=== PATIENT | male | born 1985 | race Caucasian/White ===

== ENCOUNTER 2017-05-08 12:35 | Emergency (ER) | payer SELFPAY ==
[~2017-05-08] VITALS: Ht 185.4 cm; Wt 78.9 kg
[2017-05-08] MEDS ORDERED: CLON2TAB PO (12:47)
--- NOTE | 2017-05-08 12:50 | NUR ---
PT IS IN ROOM #1B. DR ALEXANDER EVALUATED THE PT.
[2017-05-08] MEDS ORDERED: CLONAZEPAM 0.5 MG TABLET PO ONE (14:00)
--- NOTE | 2017-05-08 14:12 | NUR ---
Pt evaluated for anxiety/panic attack by Dr. Carlton. Patient discharged home in stable conditon. Referred to mental health clinic for follow up and prescription provided. Written and verbal after care instructions given. Patient verbalizes understanding of instructions.
[2017-05-08 14:14] VITALS: BP 128/78
[2017-05-08] MEDS ORDERED: CLONAZEPAM 1 MG TABLET ONE (14:14)
== END 2017-05-08 14:20 | disposition home or self-care (01) ==
LOC: ER 12:35
DX: F41.9 Anxiety disorder, unspecified (principal); Z79.899 Other long term (current) drug therapy

== ENCOUNTER 2018-06-16 19:04 | Emergency (ER) | payer SELFPAY ==
[~2018-06-16] VITALS: Ht 185.4 cm; Wt 81.6 kg
[~2018-06-16 19:04] MED LIST: CLON2TAB PO
[2018-06-16] MEDS ORDERED: ALPRAZOLAM 0.5 MG TABLET ONE (19:55)
[2018-06-16] MEDS ORDERED: ALPRAZOLAM 0.25 MG TABLET PO ONE (20:00)
--- NOTE | 2018-06-16 20:11 | NUR ---
Patient discharged to home in stable conditon. Written and verbal after care instructions given. Patient verbalizes understanding of instructions. Pt ambulated out of ER in steady gait. All belongings with pt. VSS.
[2018-06-16 20:12] VITALS: BP 114/76
== END 2018-06-16 20:12 | disposition home or self-care (01) ==
LOC: ER 19:06
DX: F41.9 Anxiety disorder, unspecified (principal); Z76.0 Encounter for issue of repeat prescription; Z59.0 Homelessness
CPT/HCPCS: 99284; A4663

== ENCOUNTER 2018-08-10 11:27 | Emergency (ER) | payer MEDICAID, OTHER ==
[~2018-08-10] VITALS: Ht 185.4 cm; Wt 79.4 kg
[2018-08-10] MEDS ORDERED: BENZONATATE 100 MG CAPSULE PO ONE (12:00)
[2018-08-10] MEDS ORDERED: IBUPROFEN 800 MG TABLET PO ONE (12:00)
[2018-08-10] MEDS ORDERED: ACETAMINOPHEN ES 500 MG TABLET PO ONE (12:00)
[2018-08-10] MEDS ORDERED: ALPRAZOLAM 0.25 MG TABLET PO ONE (12:00)
[2018-08-10] MEDS ORDERED: ACETAMINOPHEN ES 500 MG TABLET ONE (12:11)
[2018-08-10] MEDS ORDERED: BENZONATATE 100 MG CAPSULE ONE (12:11)
[2018-08-10] MEDS ORDERED: ALPRAZOLAM 0.5 MG TABLET ONE (12:12)
[2018-08-10] MEDS ORDERED: IBUPROFEN 800 MG TABLET ONE (12:12)
--- NOTE | 2018-08-10 12:16 | NUR ---
Patient discharged to home in stable conditon. Written and verbal after care instructions given. Patient verbalizes understanding of instructions. Pt left ER w/ steady gait.
[2018-08-10 12:18] VITALS: BP 144/81
== END 2018-08-10 12:22 | disposition home or self-care (01) ==
LOC: ER 11:27
DX: F41.9 Anxiety disorder, unspecified (principal); J20.8 Acute bronchitis due to other specified organisms; B97.89 Other viral agents as the cause of diseases classified elsewhere; Z59.0 Homelessness
CPT/HCPCS: A4663; A9150